=== PATIENT | female | born 1990 | race Caucasian/White ===

== ENCOUNTER 2016-09-11 01:33 | Emergency (ER) | payer SELFPAY ==
[~2016-09-11] VITALS: Ht 152.4 cm; Wt 59.0 kg
[~2016-09-11 01:33] MED LIST: PNV-DHA1 SGL PO; [UNRECOGNIZED DRUG - OTHER] PO
[2016-09-11 01:34] VITALS: BP 108/67
--- NOTE | 2016-09-11 02:30 | NUR ---
AMBULATED TO ER BED 7
--- NOTE | 2016-09-11 02:34 | NUR ---
PT IS A 26/F BIB FAMILY TO ED WITH C/O ABD PAIN x 1 WEEK. PT STATES MED HX OF ASTHMA LAST MONTH WITH INHALER. DENIES N/V/D; SKIN IS PINK/WARM/DRY; AAOX4 WITH EVEN AND STEADY GAIT; LUNGS CLEAR BL; HR EVEN AND REGULAR; PT DENIES ANY FEVER, CP, SOB, OR COUGH AT THIS TIME; PATIENT STATES PAIN OF 8/10 AT THIS TIME; VSS; PATIENT POSITIONED FOR COMFORT; HOB ELEVATED; BEDRAILS UP X2; BED DOWN. ER MD MADE AWARE OF PT STATUS.
--- NOTE | 2016-09-11 04:24 | NUR ---
PT RESTING IN BED. NO S/S OF ACUTE RESP DISTRESS AT THIS TIME. SISTER AT BEDSIDE.
[2016-09-11 04:45] VITALS: BP 110/58
--- NOTE | 2016-09-11 04:45 | NUR ---
Patient discharged with v/s stable. Written and verbal after care instructions given and explained. Patient alert, oriented and verbalized understanding of instructions. Ambulatory with steady gait. All questions addressed prior to discharge. ID band removed. Patient advised to follow up with PMD. NO Rx WERE given. Patient educated on indication of medication including possible reaction and side effects. Opportunity to ask questions provided and answered.
== END 2016-09-11 04:45 | disposition home or self-care (01) ==
LOC: MED 01:33
DX: O26.891 Other specified pregnancy related conditions, first trimester (principal); R10.31 Right lower quadrant pain; R10.32 Left lower quadrant pain; J45.909 Unspecified asthma, uncomplicated; Z90.49 Acquired absence of other specified parts of digestive tract; Z3A.01 Less than 8 weeks gestation of pregnancy
CPT/HCPCS: 36415; 76801; 76817; 80053; 81001; 81025; 83690; 84702; 85025; 86900; 86901; 99285; Q0092

== ENCOUNTER 2018-06-12 00:05 | Emergency (ER) | payer OTHER ==
[~2018-06-12] VITALS: Ht 149.9 cm; Wt 52.2 kg
[2018-06-12 00:16] VITALS: BP 118/69
[2018-06-12] MEDS ORDERED: KETOROLAC 60 MG/2 ML VIAL IM ONE (00:45)
[2018-06-12 01:05] VITALS: BP 112/65
== END 2018-06-12 01:05 | disposition home or self-care (01) ==
LOC: MED 00:05
DX: N39.0 Urinary tract infection, site not specified (principal); J45.909 Unspecified asthma, uncomplicated; Z90.49 Acquired absence of other specified parts of digestive tract
CPT/HCPCS: 81002; 81025; 96372; 99283; J1885

== ENCOUNTER 2018-07-23 19:20 | Emergency (ER) | payer OTHER ==
[~2018-07-23] VITALS: Ht 149.9 cm; Wt 56.7 kg
[2018-07-23 19:36] VITALS: BP 109/61
[2018-07-23] MEDS ORDERED: ACETAMINOPHEN 160 MG/5 ML UDC PO ONE (19:40)
[2018-07-23 22:02] VITALS: BP 107/65
== END 2018-07-23 22:01 | disposition home or self-care (01) ==
LOC: MED 19:20
DX: J06.9 Acute upper respiratory infection, unspecified (principal); J45.909 Unspecified asthma, uncomplicated
CPT/HCPCS: 99283

== ENCOUNTER 2019-04-09 23:47 | Emergency (ER) | payer SELFPAY ==
[~2019-04-09] VITALS: Ht 152.4 cm; Wt 63.5 kg
[2019-04-09 23:50] VITALS: BP 111/61
--- NOTE | 2019-04-09 23:50 | NUR ---
TO BED # 03 AMBULATORY
--- NOTE | 2019-04-10 00:16 | NUR ---
29 Y/O FEMALE PRESENTS TO ED, C/O OF ACHING ABDOMINAL PAIN 03/03. PT STATES PAIN STARTED 2 DAYS AGO AND RADIATED TO LOWER FLANK, DENIES TAKING ANY MEDICATIONS FOR PAIN. PT DENIES ANY CONSTIPATION/DIARRHEA. PT STATES HAVING N/V YESTERDAY. PT DENIES ANY PAIN VOIDING. NO ABNORMAL DISCHARGE OR FOUL SMELL ON URINE. BS ACTIVE X4 QUADRANTS. SOFT, TENDER, PAIN ON PALPATION ON LOWER QUADRANTS. PT VSS. ERMD AWARE. WILL CONTINUE TO MONITOR.
[2019-04-10 00:21] LABS: APPEARANCE,URINE SL CLOUDY (CLEAR); BILIRUBIN,URINE NEGATIVE (NEGATIVE); BLOOD, URINE NEGATIVE (NEGATIVE); COLOR,URINE YELLOW (YELLOW); LEUKOCYTE ESTERASE ,URINE NEGATIVE (NEGATIVE); NITRITE, URINE NEGATIVE (NEGATIVE); UGLUCOSE NEGATIVE (NEGATIVE)
[2019-04-10 00:37] VITALS: BP 121/60
--- NOTE | 2019-04-10 00:37 | NUR ---
PT DISCHARGED WITH PAPERWORK. RX MIRALAX. EDUCATED PT REGARDING MEDICATIONS AND S/E. EDUCATED PT REGARDING D/C DIAGNOSIS AND INSTRUCTIONS. PT VERBALIZED UNDERSTANDING OF TEACHING. TOLD PT TO FOLLOW UP WITH PCP AND WHEN TO RETURN TO ED. PT VSS. ALL QUESTIONS ANSWERED.
== END 2019-04-10 00:37 | disposition home or self-care (01) ==
LOC: MED 23:47
DX: K59.00 Constipation, unspecified (principal); M54.9 Dorsalgia, unspecified; R11.2 Nausea with vomiting, unspecified; J45.909 Unspecified asthma, uncomplicated; Z90.49 Acquired absence of other specified parts of digestive tract
CPT/HCPCS: 74018; 81003; 81025; 99283; Q0092

== ENCOUNTER 2019-04-10 18:07 | Emergency (ER) | payer MEDICAID ==
[~2019-04-10] VITALS: Ht 149.9 cm; Wt 63.5 kg
[2019-04-10 18:11] VITALS: BP 108/67
--- NOTE | 2019-04-10 18:30 | NUR ---
C/O LOWER BACK PAIN X 3 DAYS ---WORSE WITH SUDDEN MOVEMENTS DENIES DYSURIA OR RECENT INJURY--AMBULATORY WITH STEADY GAIT----AWAITS MD HOWE
--- NOTE | 2019-04-10 19:30 | NUR ---
SHAYLA PHIPPS REQUESTED TO DO ANOTHER TEST. PT PROVIDED URINE, TEST DONE HCG NEGATIVE. SHAYLA PHIPPS MADE AWARE.
[2019-04-10 20:19] LABS: BASOPHILS % (AUTO) 0.3 % (0.0-2.0); EOSINOPHILS # (AUTO) 0.3 K/uL (0-0.4); EOSINOPHILS % (AUTO) 3.7 % (0.0-4.0); HEMATOCRIT 35.9 % (36-48); LYMPHOCYTES # (AUTO) 2.4 K/uL (2.5-16.5); LYMPHOCYTES % (AUTO) 26.9 % (20.5-51.1); MEAN CORPUSCULAR HEMOGLOBIN 32 pg (27-31); MEAN CORPUSCULAR HGB CONC 34 g/dL (33-37); MEAN CORPUSCULAR VOLUME 94.4 fL (80-94); MONOCYTES # (AUTO) 0.6 K/uL (0.8-1.0); MONOCYTES % (AUTO) 7.2 % (1.7-9.3); NEUTROPHILS # (AUTO) 5.6 K/uL (1.8-7.7); NEUTROPHILS % (AUTO) 61.9 % (42.2-75.2); PLATELET COUNT (AUTO) 289 K/uL (140-450); RED CELL DISTRIBUTION WIDTH 13.6 % (11.6-13.7)
[2019-04-10 20:34] LABS: ALBUMIN 3.6 g/dL (3.4-5.0); ANION GAP 11.7 (8-16); CARBON DIOXIDE 28.1 mmol/L (21-32); CREATININE 0.6 mg/dL (0.6-1.3); POTASSIUM 3.8 mmol/L (3.5-5.1); TOTAL BILIRUBIN 0.3 mg/dL (0.0-1.0)
[2019-04-10 21:05] VITALS: BP 108/67
--- NOTE | 2019-04-10 21:05 | NUR ---
Patient discharged with v/s stable. Written and verbal after care instructions given and explained. PT ENCOURAGED TO FOLLOW UP WITH OBGYN AND TO DRINK PLENTY OF FLUIDS UNTIL URINE IS CLEAR. Patient alert, oriented and verbalized understanding of instructions. Ambulatory with steady gait. All questions addressed prior to discharge. ID band removed. Patient advised to follow up with PMD. Rx of KEFLEX AND PLUS TABLET WAS given. Patient educated on indication of medication including possible reaction and side effects. Opportunity to ask questions provided and answered.
== END 2019-04-10 21:05 | disposition home or self-care (01) ==
LOC: MED 18:07
DX: O23.41 Unspecified infection of urinary tract in pregnancy, first trimester (principal); O26.891 Other specified pregnancy related conditions, first trimester; J45.909 Unspecified asthma, uncomplicated; Z90.89 Acquired absence of other organs; Z3A.01 Less than 8 weeks gestation of pregnancy
CPT/HCPCS: 36415; 80053; 81002; 81025; 84702; 85025; 99283

== ENCOUNTER 2019-07-06 22:33 | Emergency (ER) | payer SELFPAY ==
[~2019-07-06] VITALS: Ht 149.9 cm; Wt 71.7 kg
[2019-07-06 22:35] VITALS: BP 119/48
--- NOTE | 2019-07-06 22:43 | NUR ---
AMBULATES TO BED 09 WITH STEADY UPRIGHT GAIT. REPORT GIVEN TO ALEXI HICKS.
--- NOTE | 2019-07-06 22:50 | NUR ---
29 Y/O FEMALE PRESENTS TO ED, C/O LEFT LOWER TOOTHACHE 05/03. PT STATES PAIN STARTED THIS MORNING; RADIATES AROUND LEFT SIDE FACIAL REGION. PT C/O DIZZINESS; ABLE TO AMBULATE WITH SLOW STEADY GAIT. 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 PT STATES BEING 14 WEEKS , TAKES SUPPLEMENTS. PT STABLE CONDITION. ERMD AWARE. WILL CONTINUE TO MONITOR.
--- NOTE | 2019-07-06 22:52 | NUR ---
ERMD EVALUATING PT AT BEDSIDE
[2019-07-06] MEDS: AMOXICILLIN 500 MG CAP PO ONE (23:15)
[2019-07-06] MEDS: IBUPROFEN 800 MG TAB PO ONE (23:16)
[2019-07-06 23:30] VITALS: BP 123/55
--- NOTE | 2019-07-06 23:30 | NUR ---
PT DISCHARGED WITH PAPERWORK. RX AMOXICILLIN, MOTRIN. EDUCATED PT REGARDING MEDICATIONS AND S/E. EDUCATED PT REGARDING D/C DIAGNOSIS AND INSTRUCTIONS. PT VERBALIZED UNDERSTANDING OF TEACHING. TOLD PT TO FOLLOW UP WITH PCP AND WHEN TO RETURN TO ED. PT AT STABLE CONDITION. ALL QUESTIONS ANSWERED.
== END 2019-07-06 23:30 | disposition home or self-care (01) ==
LOC: MED 22:33
DX: O99.612 Diseases of the digestive system complicating pregnancy, second trimester (principal); K04.7 Periapical abscess without sinus; J45.909 Unspecified asthma, uncomplicated; Z3A.16 16 weeks gestation of pregnancy
CPT/HCPCS: 99283

== ENCOUNTER 2020-01-19 02:02 | Emergency (ER) | payer SELFPAY ==
[~2020-01-19] VITALS: Ht 149.9 cm; Wt 59.0 kg
[2020-01-19 02:12] VITALS: BP 129/69
[2020-01-19] MEDS ORDERED: HYDROcodone/APAP 10/325 MG 1 TAB TAB PO PRN (03:10)
[2020-01-19] MEDS ORDERED: IBUPROFEN 600 MG TAB PO ONE (03:10)
[2020-01-19] MEDS ORDERED: CLINDAMYCIN 150 MG CAP PO ONE (03:10)
--- NOTE | 2020-01-19 03:16 | NUR ---
Patient ambulated to bed 12. RN evaluating patient at bedside.
--- NOTE | 2020-01-19 03:20 | NUR ---
30 YO F BIB SELF FOR C/C OF 10/10 L BOTTOM SIDE TOOTHACHE. PT STATES THIS BEGAN YESTERDAY MORNING AND HAS BEEN UNRELIEVED BY TYLENOL AND ORAJEL AT HOME. PT STATES SHE HAS BEEN UNABLE TO SEE DENTIST BUT WILL GET AN APPOINTMENT OZZIE. NKA NO MED HX NO RX
--- NOTE | 2020-01-19 03:35 | NUR ---
Dr. Ruiz is evaluating the patient at bedside.
[2020-01-19 03:40] VITALS: BP 129/69
--- NOTE | 2020-01-19 03:40 | NUR ---
Patient discharged with v/s stable. Written and verbal after care instructions given and explained. Patient alert, oriented and verbalized understanding of instructions. Ambulatory with steady gait. All questions addressed prior to discharge. ID band removed. Patient advised to follow up with PMD. Rx of NORCO, CLINDAMYCIN, MOTRIN given. Patient educated on indication of medication including possible reaction and side effects. Opportunity to ask questions provided and answered.
== END 2020-01-19 03:40 | disposition home or self-care (01) ==
LOC: MED 02:02
DX: K04.7 Periapical abscess without sinus (principal); J45.909 Unspecified asthma, uncomplicated
CPT/HCPCS: 99284

== ENCOUNTER 2020-07-09 21:09 | Emergency (ER) | payer MEDICAID ==
[~2020-07-09] VITALS: Ht 154.9 cm; Wt 59.0 kg
[2020-07-09 22:00] VITALS: BP 132/76
--- NOTE | 2020-07-09 22:00 | NUR ---
TO TENT # 07 AMBULATORY
--- NOTE | 2020-07-09 22:31 | NUR ---
SEEN AND EXAMINED BY SALOMÓN WITH ORDERS, CARRIED OUT
--- NOTE | 2020-07-09 22:40 | NUR ---
SWAB DONE AND SENT TO LAB
[2020-07-09 23:20] VITALS: BP 119/79
== END 2020-07-09 23:20 | disposition home or self-care (01) ==
LOC: MED 21:09
DX: R05 Cough (principal); Z20.828 Contact with and (suspected) exposure to other viral communicable diseases; M79.10 Myalgia, unspecified site; R50.9 Fever, unspecified
CPT/HCPCS: 99283; U0003

== ENCOUNTER 2020-12-11 20:42 | Emergency (ER) | payer MEDICAID ==
[~2020-12-11] VITALS: Ht 149.9 cm; Wt 68.0 kg
[2020-12-11 20:47] VITALS: BP 111/59
--- NOTE | 2020-12-11 20:47 | NUR ---
TO BED AMBULATORY
--- NOTE | 2020-12-11 20:57 | NUR ---
30 y.o female has vaginal bleeding started 5-6 hours ago along with back pain. Pain feels like a 6-7/10 pain that feels achey. pt states being 13weeks . A2 PMH: n/a Allergies: NKA
[2020-12-11] MEDS ORDERED: DOPPLER MC ONE (21:16)
--- NOTE | 2020-12-11 21:20 | NUR ---
heart tones done at bedside with Be TRUONG
--- NOTE | 2020-12-11 21:37 | NUR ---
ERMD at bedside for examination
[2020-12-11 22:15] VITALS: BP 97/53
--- NOTE | 2020-12-11 22:15 | NUR ---
Patient discharged with v/s stable. Written and verbal after care instructions given and explained. Patient verbalized understanding. Ambulatory with steady gait. ID band removed. All questions addressed prior to discharge. Advised to follow up with PMD.
== END 2020-12-11 22:15 | disposition home or self-care (01) ==
LOC: MED 20:42
DX: O20.8 Other hemorrhage in early pregnancy (principal); O26.891 Other specified pregnancy related conditions, first trimester; R10.30 Lower abdominal pain, unspecified; M54.9 Dorsalgia, unspecified; Z3A.13 13 weeks gestation of pregnancy; J45.909 Unspecified asthma, uncomplicated; Z90.49 Acquired absence of other specified parts of digestive tract; Z98.890 Other specified postprocedural states
CPT/HCPCS: 81002; 81025; 99284

== ENCOUNTER 2021-01-15 01:42 | Emergency (ER) | payer MEDICAID ==
[~2021-01-15] VITALS: Ht 149.9 cm; Wt 72.6 kg
--- NOTE | 2021-01-15 01:50 | NUR ---
To ED bed 11
[2021-01-15 01:51] VITALS: BP 109/61
[2021-01-15] MEDS ORDERED: NACL 0.9% 1,000 ML IV ONE (02:05)
[2021-01-15] MEDS ORDERED: cephALEXin 500 MG CAP PO ONE (02:05)
[2021-01-15] MEDS ORDERED: ACETAMINOPHEN EXTRA STRENGTH 500 MG TAB PO ONE (02:05)
[2021-01-15] MEDS ORDERED: cephALEXin 500 MG CAP ONE (02:06)
[2021-01-15] MEDS ORDERED: ACETAMINOPHEN EXTRA STRENGTH 500 MG TAB ONE (02:06)
[2021-01-15 02:17] LABS: BASOPHILS % (AUTO) 0.3 % (0.0-2.0); EOSINOPHILS # (AUTO) 0.2 K/uL (0-0.4); EOSINOPHILS % (AUTO) 1.3 % (0.0-4.0); HEMATOCRIT 33.4 % (36-48); HEMOGLOBIN 11.3 g/dL (12.0-16.0); LYMPHOCYTES # (AUTO) 2.5 K/uL (2.5-16.5); LYMPHOCYTES % (AUTO) 18.8 % (20.5-51.1); MEAN CORPUSCULAR HEMOGLOBIN 33 pg (27-31); MEAN CORPUSCULAR HGB CONC 34 g/dL (33-37); MEAN CORPUSCULAR VOLUME 98.3 fL (80-94); MONOCYTES # (AUTO) 0.9 K/uL (0.8-1.0); NEUTROPHILS # (AUTO) 9.6 K/uL (1.8-7.7); NEUTROPHILS % (AUTO) 72.6 % (42.2-75.2); PLATELET COUNT (AUTO) 265 K/uL (140-450); WHITE BLOOD COUNT (AUTO) 13.2 K/uL (4.8-10.8)
[2021-01-15 02:26] LABS: ANION GAP 23.2 (8-16); CARBON DIOXIDE 23.7 mmol/L (21-32); CREATININE 0.6 mg/dL (0.6-1.3); POTASSIUM 3.9 mmol/L (3.5-5.1)
[2021-01-15 02:32] LABS: ALBUMIN 2.8 g/dL (3.4-5.0); TOTAL BILIRUBIN 0.1 mg/dL (0.0-1.0)
--- NOTE | 2021-01-15 02:50 | NUR ---
US AT BEDSIDE. AT BEDSIDE.
--- NOTE | 2021-01-15 03:17 | NUR ---
pt ambulated to restroom with steady gait.
[2021-01-15 06:05] VITALS: BP 98/69
[2021-01-15] MEDS ORDERED: CEPH500C16 PO (06:10)
--- NOTE | 2021-01-15 06:24 | NUR ---
pt d/c with VSS. d/c education given. opportunity to ask questions given and answered. no rx given at this time.
== END 2021-01-15 06:24 | disposition home or self-care (01) ==
LOC: MED 01:42
DX: O23.41 Unspecified infection of urinary tract in pregnancy, first trimester (principal); J45.909 Unspecified asthma, uncomplicated; Z3A.18 18 weeks gestation of pregnancy
CPT/HCPCS: 36415; 76805; 80053; 81002; 81025; 85025; 96360; 99284; J7030

== ENCOUNTER 2021-02-23 23:32 | Emergency (ER) | payer MEDICAID ==
[~2021-02-23] VITALS: Ht 149.9 cm; Wt 72.6 kg
[~2021-02-23 23:32] MED LIST changes: +CEPH500C16 PO; -PNV-DHA1 SGL PO; -[UNRECOGNIZED DRUG - OTHER] PO
[2021-02-23 23:44] VITALS: BP 116/68
--- NOTE | 2021-02-23 23:47 | NUR ---
TO LOBBY A/W BED AMBULATORY
--- NOTE | 2021-02-23 23:55 | NUR ---
CALLED PT IN LOBBY AND OUTSIDE WITH NO ANSWER.
--- NOTE | 2021-02-24 | NUR ---
CALLED PT IN LOBBY AND OUTSIDE WITH NO ANSWER.
--- NOTE | 2021-02-24 00:05 | NUR ---
CALLED PT IN LOBBY AND OUTSIDE WITH NO ANSWER.
== END 2021-02-23 23:55 | disposition left against medical advice (07) ==
LOC: MED 23:32
DX: O26.892 Other specified pregnancy related conditions, second trimester (principal); R51.9 Headache, unspecified; M79.10 Myalgia, unspecified site; Z53.21 Procedure and treatment not carried out due to patient leaving prior to being seen by health care provider

== ENCOUNTER 2021-07-24 14:15 | Emergency (ER) | payer MEDICAID, OTHER ==
[~2021-07-24] VITALS: Ht 149.9 cm; Wt 88.9 kg
[2021-07-24 15:45] VITALS: BP 149/93
--- NOTE | 2021-07-24 15:57 | NUR ---
Pt to wait in lobby
[2021-07-24] MEDS ORDERED: LORazepam 1 MG TAB PO ONE (17:55)
[2021-07-24 18:49] LABS: BASOPHILS % (AUTO) 0.5 % (0.0-2.0); EOSINOPHILS # (AUTO) 0.2 K/uL (0-0.4); EOSINOPHILS % (AUTO) 2.4 % (0.0-4.0); HEMATOCRIT 41.7 % (36-48); LYMPHOCYTES # (AUTO) 1.8 K/uL (2.5-16.5); LYMPHOCYTES % (AUTO) 24.2 % (20.5-51.1); MEAN CORPUSCULAR HEMOGLOBIN 32 pg (27-31); MEAN CORPUSCULAR HGB CONC 34 g/dL (33-37); MEAN CORPUSCULAR VOLUME 93.5 fL (80-94); MONOCYTES # (AUTO) 0.5 K/uL (0.8-1.0); MONOCYTES % (AUTO) 6.2 % (1.7-9.3); NEUTROPHILS # (AUTO) 5.1 K/uL (1.8-7.7); NEUTROPHILS % (AUTO) 66.7 % (42.2-75.2); PLATELET COUNT (AUTO) 322 K/uL (140-450); RED BLOOD CELL COUNT(AUTO) 4.46 MIL/uL (4.20-5.40); RED CELL DISTRIBUTION WIDTH 12.6 % (11.6-13.7); WHITE BLOOD COUNT (AUTO) 7.6 K/uL (4.8-10.8)
[2021-07-24] MEDS ORDERED: ATA25 PO (18:51)
[2021-07-24 18:54] LABS: ANION GAP 10.7 (8-16); CARBON DIOXIDE 28.2 mmol/L (21-32); CREATININE 0.6 mg/dL (0.6-1.3); POTASSIUM 3.9 mmol/L (3.5-5.1)
[2021-07-24] MEDS ORDERED: LORazepam 1 MG TAB ONE (19:34)
[2021-07-24 19:45] VITALS: BP 149/93
--- NOTE | 2021-07-25 00:19 | NUR ---
Patient discharged with v/s stable. Written and verbal after care instructions given and explained. Patient verbalized understanding. Ambulatory with steady gait. All questions addressed prior to discharge. Advised to follow up with PMD.
== END 2021-07-24 19:45 | disposition home or self-care (01) ==
LOC: MED 14:15
DX: F41.9 Anxiety disorder, unspecified (principal); R07.89 Other chest pain; J45.909 Unspecified asthma, uncomplicated; Z79.899 Other long term (current) drug therapy
CPT/HCPCS: 36415; 71045; 80048; 84484; 85025; 93005; 99285

== ENCOUNTER 2021-10-29 11:50 | Emergency (ER) | payer OTHER ==
[~2021-10-29] VITALS: Ht 149.9 cm; Wt 68.5 kg
[~2021-10-29 11:50] MED LIST changes: +ATA25 PO
[2021-10-29 12:04] VITALS: BP 129/73
--- NOTE | 2021-10-29 12:08 | NUR ---
PT SENT TO LOBBY
--- NOTE | 2021-10-29 14:48 | NUR ---
ATTEMPTED TO COMPLETE ACCUCHECK, NO ANSWER IN LOBBY/OUTSIDE. SHAYLA CRAIN MADE AWARE
--- NOTE | 2021-10-29 15:06 | NUR ---
SHALYA CRAIN CALLED PT TO HAVE HER COME BACK, PT REPORTS SHE IS COMING BACK.
--- NOTE | 2021-10-29 17:27 | NUR ---
PT NEVER RETURNED TO ER AFTER PA CRAIN CALLED PT. PATIENT ELOPED FROM FACILITY. DISCHARGE INSTRUCTIONS NOT GIVEN TO PATIENT. PA CRAIN NOTIFIED. PT WILL NEED TO CHECK BACK IN IF SHE RETURNS.
== END 2021-10-29 17:27 | disposition left against medical advice (07) ==
LOC: MED 11:50
DX: R42 Dizziness and giddiness (principal); R11.0 Nausea; J45.909 Unspecified asthma, uncomplicated; Z79.899 Other long term (current) drug therapy
CPT/HCPCS: 81002; 81025; 93005; 99283

== ENCOUNTER 2021-11-09 14:11 | Emergency (ER) | payer OTHER ==
[~2021-11-09] VITALS: Ht 149.9 cm; Wt 66.7 kg
[2021-11-09 14:41] VITALS: BP 106/55
--- NOTE | 2021-11-09 14:45 | NUR ---
PT C/O VAGINAL BLEEDING SINCE LAST NIGHT, BRIGHT RED BLOOD WITH CLOTS AND ABDOMINAL CRAMPING, APPROX 5 WEEKS .
[2021-11-09 15:48] LABS: BILIRUBIN,URINE NEGATIVE (NEGATIVE); BLOOD, URINE 3+ (NEGATIVE); LEUKOCYTE ESTERASE ,URINE TRACE (NEGATIVE); NITRITE, URINE NEGATIVE (NEGATIVE); PH,URINE 5.5 (5.0-9.0); UGLUCOSE NEGATIVE (NEGATIVE)
[2021-11-09 15:49] LABS: APPEARANCE,URINE HAZY (CLEAR); COLOR,URINE RED (YELLOW)
[2021-11-09] MEDS ORDERED: CEPH-588 PO (17:29)
[2021-11-09 17:52] VITALS: BP 107/65
[2021-11-09 21:12] LABS: RBC,URINE TOO NUMEROUS TO COUN /HPF (0-5)
[2021-11-09 21:13] LABS: WBC,URINE 0-5 /HPF (0-5)
== END 2021-11-09 17:52 | disposition home or self-care (01) ==
LOC: MED 14:11
DX: O20.0 Threatened abortion (principal); O98.911 Unspecified maternal infectious and parasitic disease complicating pregnancy, first trimester; R82.71 Bacteriuria; J45.909 Unspecified asthma, uncomplicated; Z79.899 Other long term (current) drug therapy
CPT/HCPCS: 36415; 76801; 81001; 81025; 84702; 86886; 86900; 86901; 99284; Q0092

== ENCOUNTER 2021-11-13 18:13 | Emergency (ER) | payer OTHER ==
[~2021-11-13] VITALS: Ht 149.9 cm; Wt 64.9 kg
[~2021-11-13 18:13] MED LIST changes: +CEPH-588 PO
[2021-11-13 18:27] VITALS: BP 106/69
--- NOTE | 2021-11-13 18:40 | NUR ---
PT AMBULATED TO BED #3
[2021-11-13 18:54] LABS: BASOPHILS % (AUTO) 0.6 % (0.0-2.0); EOSINOPHILS # (AUTO) 0.1 K/uL (0-0.4); EOSINOPHILS % (AUTO) 1.9 % (0.0-4.0); HEMATOCRIT 38.8 % (36-48); HEMOGLOBIN 13.1 g/dL (12.0-16.0); MEAN CORPUSCULAR HEMOGLOBIN 32 pg (27-31); MEAN CORPUSCULAR HGB CONC 34 g/dL (33-37); MONOCYTES # (AUTO) 0.5 K/uL (0.8-1.0); MONOCYTES % (AUTO) 7.1 % (1.7-9.3); NEUTROPHILS # (AUTO) 3.8 K/uL (1.8-7.7); NEUTROPHILS % (AUTO) 59.4 % (42.2-75.2); PLATELET COUNT (AUTO) 277 K/uL (140-450); RED BLOOD CELL COUNT(AUTO) 4.13 MIL/uL (4.20-5.40); RED CELL DISTRIBUTION WIDTH 13.6 % (11.6-13.7); WHITE BLOOD COUNT (AUTO) 6.4 K/uL (4.8-10.8)
[2021-11-13 19:20] LABS: ALBUMIN 3.8 g/dL (3.4-5.0); ANION GAP 14.6 (8-16); CARBON DIOXIDE 24.4 mmol/L (21-32); CREATININE 0.7 mg/dL (0.6-1.3); TOTAL BILIRUBIN 0.5 mg/dL (0.0-1.0)
--- NOTE | 2021-11-13 19:30 | NUR ---
pt urine collected tested for preg
[2021-11-13] MEDS ORDERED: POTASSIUM CHLORIDE 10 MEQ TABER PO ONE (19:35)
[2021-11-13] MEDS ORDERED: ACET-10509 PO (19:40)
[2021-11-13 20:10] VITALS: BP 106/69
--- NOTE | 2021-11-13 20:10 | NUR ---
Patient discharged with v/s stable. Written and verbal after care instructions given and explained. Patient alert, oriented and verbalized understanding of instructions. Ambulatory with steady gait. All questions addressed prior to discharge. ID band removed. Patient advised to follow up with PMD. Rx of tylenol given. Opportunity to ask questions provided and answered.
--- NOTE | 2021-11-13 20:30 | NUR ---
The patient's care was reviewed and supervised by Nita Bagley RN.
== END 2021-11-13 20:10 | disposition home or self-care (01) ==
LOC: MED 18:13
DX: O03.9 Complete or unspecified spontaneous abortion without complication (principal); J45.909 Unspecified asthma, uncomplicated; Z79.899 Other long term (current) drug therapy; Z90.49 Acquired absence of other specified parts of digestive tract; Z98.890 Other specified postprocedural states
CPT/HCPCS: 36415; 80053; 81002; 81025; 84702; 85025; 99283

== ENCOUNTER 2021-12-16 15:42 | Emergency (ER) | payer OTHER ==
[~2021-12-16] VITALS: Ht 149.9 cm; Wt 59.0 kg
[~2021-12-16 15:42] MED LIST changes: +ACET-10509 PO
[2021-12-16 16:04] VITALS: BP 135/91
--- NOTE | 2021-12-16 16:10 | NUR ---
PT AMB TO BED 8.
--- NOTE | 2021-12-16 16:30 | NUR ---
NO NURSING INTERVENTIONS PERFORMED. Patient discharged with v/s stable. Written and verbal after care instructions giveN. Patient verbalized understanding. Ambulatory with steady gait. All questions addressed prior to discharge. Advised to follow up with PMD.
--- NOTE | 2021-12-16 16:31 | NUR ---
Chart checked and completed. The patient's care was reviewed and supervised by Erendira Pena RN.
== END 2021-12-16 16:30 | disposition home or self-care (01) ==
LOC: MED 15:42
DX: R11.10 Vomiting, unspecified (principal); J45.909 Unspecified asthma, uncomplicated; Z90.49 Acquired absence of other specified parts of digestive tract; Z98.890 Other specified postprocedural states; Z79.899 Other long term (current) drug therapy; Z79.2 Long term (current) use of antibiotics
CPT/HCPCS: 99281

== ENCOUNTER 2022-01-23 20:04 | Emergency (ER) | payer OTHER ==
[~2022-01-23] VITALS: Ht 149.9 cm; Wt 64.2 kg
[2022-01-23 20:13] VITALS: BP 117/73
--- NOTE | 2022-01-23 20:16 | NUR ---
PT TO BED 2.
--- NOTE | 2022-01-23 20:35 | NUR ---
32 Y.O. F BIB SELF C/O 03/03 PELVIC PAIN RAD TO ABD X1WK. PT STTED TO ME THAT SHE FEEL LIKE IT IS MORE OF A DISCOMFORT THAN A PAIN. REPORTS H/A. STATES INCREASED URINARY URGENCY AND FREQUENCY. IS TAKING TYLENOL WITH LITTLE RELIEF. HAD SOME N/V TODAY. NO D, CHEST PAIN, AND SOB. A&OX4, VITALS WNL FOR PT, STEADY GAIT, SKIN INTACT AND NO PIAN WHEN URINATING. DENIES HX, RX AND ALLERGIES
[2022-01-23 20:57] LABS: BASOPHILS # (AUTO) 0.1 K/uL (0.00-0.22); BASOPHILS % (AUTO) 0.6 % (0.0-2.0); EOSINOPHILS # (AUTO) 0.1 K/uL (0-0.4); EOSINOPHILS % (AUTO) 1.3 % (0.0-4.0); HEMATOCRIT 32.3 % (36-48); HEMOGLOBIN 10.8 g/dL (12.0-16.0); LYMPHOCYTES # (AUTO) 2.1 K/uL (2.5-16.5); LYMPHOCYTES % (AUTO) 23.1 % (20.5-51.1); MEAN CORPUSCULAR HEMOGLOBIN 33 pg (27-31); MEAN CORPUSCULAR HGB CONC 34 g/dL (33-37); MEAN CORPUSCULAR VOLUME 98.4 fL (80-94); MONOCYTES # (AUTO) 0.7 K/uL (0.8-1.0); MONOCYTES % (AUTO) 7.7 % (1.7-9.3); NEUTROPHILS # (AUTO) 6.1 K/uL (1.8-7.7); NEUTROPHILS % (AUTO) 67.3 % (42.2-75.2); PLATELET COUNT (AUTO) 267 K/uL (140-450); RED BLOOD CELL COUNT(AUTO) 3.28 MIL/uL (4.20-5.40); RED CELL DISTRIBUTION WIDTH 14.6 % (11.6-13.7); WHITE BLOOD COUNT (AUTO) 9.1 K/uL (4.8-10.8)
[2022-01-23 21:01] LABS: APPEARANCE,URINE CLEAR (CLEAR); BILIRUBIN,URINE NEGATIVE (NEGATIVE); BLOOD, URINE NEGATIVE (NEGATIVE); COLOR,URINE YELLOW (YELLOW); LEUKOCYTE ESTERASE ,URINE TRACE (NEGATIVE); NITRITE, URINE NEGATIVE (NEGATIVE); UGLUCOSE NEGATIVE (NEGATIVE)
[2022-01-23 21:03] LABS: RBC,URINE NONE SEEN /HPF (0-5)
[2022-01-23] MEDS ORDERED: DOXY1TCP PO (21:26)
[2022-01-23] MEDS ORDERED: NITR100C7 PO (21:26)
[2022-01-23 21:39] VITALS: BP 117/73
--- NOTE | 2022-01-23 21:40 | NUR ---
Patient discharged with v/s stable. Written and verbal after care instructions given and explained. Patient alert, oriented and verbalized understanding of instructions. Ambulatory with steady gait. All questions addressed prior to discharge. ID band removed. Patient advised to follow up with PMD. Rx of SKIPS DR 10-10 MG TABLET AND MACROBID 100MG CAPSULE given. Patient educated on indication of medication including possible reaction and side effects. Opportunity to ask questions provided and answered.
== END 2022-01-23 21:38 | disposition home or self-care (01) ==
LOC: MED 20:04
DX: O23.41 Unspecified infection of urinary tract in pregnancy, first trimester (principal); O26.891 Other specified pregnancy related conditions, first trimester; R11.0 Nausea; O99.511 Diseases of the respiratory system complicating pregnancy, first trimester; J45.909 Unspecified asthma, uncomplicated; Z3A.01 Less than 8 weeks gestation of pregnancy; Z90.49 Acquired absence of other specified parts of digestive tract; Z79.899 Other long term (current) drug therapy; Z79.2 Long term (current) use of antibiotics
CPT/HCPCS: 36415; 76817; 81001; 81025; 84702; 85025; 86900; 86901; 87086; 99284; Q0092

== ENCOUNTER 2022-03-10 18:26 | Emergency (ER) | payer OTHER ==
[~2022-03-10] VITALS: Ht 149.9 cm; Wt 61.2 kg
[~2022-03-10 18:26] MED LIST changes: +DOXY1TCP PO; +NITR100C7 PO
[2022-03-10 18:51] VITALS: BP 117/69
--- NOTE | 2022-03-10 19:01 | NUR ---
PATIENT AMBULATED TO BED 2.
--- NOTE | 2022-03-10 19:17 | NUR ---
Pt report given to RAGHAV VUONG. Transfer of care at this time.
--- NOTE | 2022-03-10 19:25 | NUR ---
32 Y/O F BIB SELF C/O LOWER ABD PAIN8/10, N/V/D, CHILLS, QIU X TODAY. 14 WEEKS . PMH: SINTIA REYES
--- NOTE | 2022-03-10 19:25 | NUR ---
DR KYLE AT BEDSIDE.
[2022-03-10] MEDS ORDERED: ACETAMINOPHEN EXTRA STRENGTH 500 MG TAB PO ONE (19:40)
[2022-03-10 19:56] LABS: BASOPHILS % (AUTO) 0.2 % (0.0-2.0); EOSINOPHILS % (AUTO) 0.5 % (0.0-4.0); HEMATOCRIT 35.2 % (36-48); LYMPHOCYTES # (AUTO) 0.7 K/uL (2.5-16.5); LYMPHOCYTES % (AUTO) 10.3 % (20.5-51.1); MEAN CORPUSCULAR HEMOGLOBIN 34 pg (27-31); MEAN CORPUSCULAR HGB CONC 34 g/dL (33-37); MEAN CORPUSCULAR VOLUME 98.7 fL (80-94); MONOCYTES # (AUTO) 0.3 K/uL (0.8-1.0); MONOCYTES % (AUTO) 5.1 % (1.7-9.3); NEUTROPHILS # (AUTO) 5.6 K/uL (1.8-7.7); NEUTROPHILS % (AUTO) 83.9 % (42.2-75.2); PLATELET COUNT (AUTO) 252 K/uL (140-450); RED BLOOD CELL COUNT(AUTO) 3.57 MIL/uL (4.20-5.40); RED CELL DISTRIBUTION WIDTH 13.5 % (11.6-13.7); WHITE BLOOD COUNT (AUTO) 6.7 K/uL (4.8-10.8)
[2022-03-10 20:10] LABS: ANION GAP 9.9 (8-16); CARBON DIOXIDE 24.6 mmol/L (21-32); CREATININE 0.5 mg/dL (0.6-1.3); POTASSIUM 3.5 mmol/L (3.5-5.1); TOTAL BILIRUBIN 0.6 mg/dL (0.0-1.0)
[2022-03-10] MEDS ORDERED: METO-485 PO (20:41)
[2022-03-10] MEDS ORDERED: CEPH-588 PO (20:41)
[2022-03-10] MEDS ORDERED: DOXY1TCP PO (20:41)
--- NOTE | 2022-03-10 21:12 | NUR ---
ULATRASOUND AT BEDSIDE.
[2022-03-10] MEDS ORDERED: ONDANSETRON 4 MG ODT PO ONE (21:35)
[2022-03-10 22:40] VITALS: BP 103/60
== END 2022-03-10 22:40 | disposition home or self-care (01) ==
LOC: MED 18:26
DX: O99.611 Diseases of the digestive system complicating pregnancy, first trimester (principal); O21.8 Other vomiting complicating pregnancy; K52.9 Noninfective gastroenteritis and colitis, unspecified; Z3A.14 14 weeks gestation of pregnancy
CPT/HCPCS: 36415; 76801; 80053; 81002; 81025; 84702; 85025; 87086; 99285; Q0092; Q0162

== ENCOUNTER 2022-04-12 12:12 | Emergency (ER) | payer OTHER ==
[~2022-04-12] VITALS: Ht 149.9 cm; Wt 63.5 kg
[2022-04-12 12:26] VITALS: BP 137/96
--- NOTE | 2022-04-12 12:26 | NUR ---
32 y/o female, c/o headache, lightheaded, tingling sensation in her head for 3 days. denies blurry vision, n/v/d, cough, sob, cp, or sore throat. pmh: anxiety nka med: denies
[2022-04-12] MEDS ORDERED: IBUP-2213 PO (14:32)
[2022-04-12] MEDS ORDERED: IBUPROFEN 600 MG TAB PO SCH (14:35)
[2022-04-12 15:27] VITALS: BP 137/96
--- NOTE | 2022-04-12 15:27 | NUR ---
Patient discharged with v/s stable. Written and verbal after care instructions given and explained. Patient alert, oriented and verbalized understanding of instructions. Ambulatory with steady gait. All questions addressed prior to discharge. ID band removed. Patient advised to follow up with PMD. Rx of ibuprofen (sent) given. Patient educated on indication of medication including possible reaction and side effects. Opportunity to ask questions provided and answered.
== END 2022-04-12 15:27 | disposition home or self-care (01) ==
LOC: MED 12:12
DX: R51.9 Headache, unspecified (principal); R03.0 Elevated blood-pressure reading, without diagnosis of hypertension; F41.9 Anxiety disorder, unspecified; J45.909 Unspecified asthma, uncomplicated; Z79.899 Other long term (current) drug therapy
CPT/HCPCS: 99282

== ENCOUNTER 2022-04-26 00:02 | Emergency (ER) | payer OTHER ==
[~2022-04-26] VITALS: Ht 149.9 cm; Wt 63.5 kg
[~2022-04-26 00:02] MED LIST changes: +IBUP-2213 PO
[2022-04-26 00:10] VITALS: BP 119/77
--- NOTE | 2022-04-26 00:13 | NUR ---
to lobby a/w bed ambulatory
--- NOTE | 2022-04-26 01:36 | NUR ---
Dr. Anderson examining patient.
[2022-04-26] MEDS ORDERED: PENI500T20 PO (02:14)
[2022-04-26 02:20] VITALS: BP 119/77
--- NOTE | 2022-04-26 02:20 | NUR ---
Patient discharged with v/s stable. Written and verbal after care instructions given and explained BY CHAZ BESS Patient alert, oriented and verbalized understanding of instructions. Ambulatory with steady gait. All questions addressed prior to discharge. ID band removed. Patient advised to follow up with PMD. Rx of PENICILLIN V K given. Patient educated on indication of medication including possible reaction and side effects. Opportunity to ask questions provided and answered.
== END 2022-04-26 02:20 | disposition home or self-care (01) ==
LOC: MED 00:02
DX: S61.411A Laceration without foreign body of right hand, initial encounter (principal); J45.909 Unspecified asthma, uncomplicated; W26.0XXA Contact with knife, initial encounter; Y93.89 Activity, other specified; Y92.89 Other specified places as the place of occurrence of the external cause; Y99.8 Other external cause status
CPT/HCPCS: 90471; 90715; 99283

== ENCOUNTER 2022-12-02 02:45 | Emergency (ER) | payer OTHER ==
[~2022-12-02] VITALS: Ht 149.9 cm; Wt 61.7 kg
[~2022-12-02 02:45] MED LIST changes: +PENI500T20 PO
[2022-12-02 03:00] VITALS: BP 130/87
--- NOTE | 2022-12-02 03:03 | NUR ---
TO LOBBY A/W BED AMBULATORY
--- NOTE | 2022-12-02 04:22 | NUR ---
Patient returned back from CT scan.
--- NOTE | 2022-12-02 05:10 | NUR ---
pt to chc
--- NOTE | 2022-12-02 05:12 | NUR ---
Dr. Smith examining patient.
[2022-12-02] MEDS ORDERED: ACET-10509 PO (05:18)
[2022-12-02 05:23] VITALS: BP 128/87
== END 2022-12-02 05:23 | disposition home or self-care (01) ==
LOC: MED 02:45
DX: S00.83XA Contusion of other part of head, initial encounter (principal); J45.909 Unspecified asthma, uncomplicated; Z79.899 Other long term (current) drug therapy; Z79.2 Long term (current) use of antibiotics; Z79.1 Long term (current) use of non-steroidal anti-inflammatories (NSAID); W01.198A Fall on same level from slipping, tripping and stumbling with subsequent striking against other object, initial encounter; Y92.89 Other specified places as the place of occurrence of the external cause; Y93.89 Activity, other specified; Y99.8 Other external cause status
CPT/HCPCS: 70450; 99284

== ENCOUNTER 2023-01-09 01:03 | Emergency (ER) | payer OTHER ==
[~2023-01-09] VITALS: Ht 152.4 cm; Wt 59.0 kg
[2023-01-09 01:06] VITALS: BP 106/73
--- NOTE | 2023-01-09 02:07 | NUR ---
PT AMBULATED TO BED 06.
--- NOTE | 2023-01-09 02:10 | NUR ---
RECEIVED IN BED 6 WITH C/O FEVER SINCE YESTERDAY.
[2023-01-09] MEDS ORDERED: KETOROLAC 30 MG/ML VIAL IM ONE (03:35)
[2023-01-09] MEDS ORDERED: NAPR-54 PO (04:05)
[2023-01-09] MEDS ORDERED: AZIT250T4 PO (04:05)
[2023-01-09 04:10] VITALS: BP 106/73
--- NOTE | 2023-01-09 04:10 | NUR ---
Patient discharged with v/s stable. Written and verbal after care instructions given and explained. Patient alert, oriented and verbalized understanding of instructions. Ambulatory with steady gait. All questions addressed prior to discharge. ID band removed. Patient advised to follow up with PMD. Rx of Z PACK, NAPROSYN given. Patient educated on indication of medication including possible reaction and side effects. Opportunity to ask questions provided and answered.
[2023-01-09] MEDS ORDERED: BEN10 PO (15:49)
== END 2023-01-09 04:10 | disposition home or self-care (01) ==
LOC: MED 01:03
DX: J02.9 Acute pharyngitis, unspecified (principal); R50.9 Fever, unspecified; J45.909 Unspecified asthma, uncomplicated; Z79.899 Other long term (current) drug therapy
CPT/HCPCS: 87081; 96372; 99283

== ENCOUNTER 2023-01-09 13:19 | Emergency (ER) | payer OTHER ==
[~2023-01-09] VITALS: Ht 149.9 cm; Wt 63.5 kg
[~2023-01-09 13:19] MED LIST changes: +AZIT250T4 PO; +NAPR-54 PO
[2023-01-09 13:23] VITALS: BP 124/77
[2023-01-09] MEDS ORDERED: NACL 0.9% 1,000 ML IV ONE (13:55)
[2023-01-09] MEDS ORDERED: ONDANSETRON 4 MG/2 ML VIAL IVP ONE (13:55)
[2023-01-09] MEDS ORDERED: MORPHINE SULFATE 4 MG/ML SYR IVP ONE (13:55)
[2023-01-09 14:20] LABS: BASOPHILS % (AUTO) 0.4 % (0.0-2.0); EOSINOPHILS # (AUTO) 0.1 K/uL (0-0.4); EOSINOPHILS % (AUTO) 1.8 % (0.0-4.0); HEMATOCRIT 35.1 % (36-48); LYMPHOCYTES # (AUTO) 2.4 K/uL (2.5-16.5); LYMPHOCYTES % (AUTO) 28.6 % (20.5-51.1); MEAN CORPUSCULAR HEMOGLOBIN 33 pg (27-31); MEAN CORPUSCULAR HGB CONC 34 g/dL (33-37); MEAN CORPUSCULAR VOLUME 96.3 fL (80-94); MONOCYTES # (AUTO) 0.7 K/uL (0.8-1.0); MONOCYTES % (AUTO) 8.1 % (1.7-9.3); NEUTROPHILS % (AUTO) 61.1 % (42.2-75.2); PLATELET COUNT (AUTO) 245 K/uL (140-450); RED BLOOD CELL COUNT(AUTO) 3.64 MIL/uL (4.20-5.40); RED CELL DISTRIBUTION WIDTH 12.6 % (11.6-13.7); WHITE BLOOD COUNT (AUTO) 8.2 K/uL (4.8-10.8)
[2023-01-09 14:34] LABS: ALBUMIN 3.6 g/dL (3.4-5.0); ANION GAP 9.8 (8-16); CARBON DIOXIDE 31.3 mmol/L (21-32); CREATININE 0.6 mg/dL (0.6-1.3); POTASSIUM 3.1 mmol/L (3.5-5.1); TOTAL BILIRUBIN 0.2 mg/dL (0.0-1.0)
[2023-01-09] MEDS ORDERED: POTASSIUM CHLORIDE 10 MEQ TABER PO ONE (14:45)
[2023-01-09] MEDS ORDERED: KETOROLAC 15 MG/ML VIAL IVP ONE (14:45)
[2023-01-09] MEDS ORDERED: KCL 20 MEQ IN 100 mL PREMIX 100 ML IV ONE (14:45)
--- NOTE | 2023-01-09 14:49 | NUR ---
PATIENT PRESENTS TO ED WITH ABD PAIN . PT STATES THE PAIN HAS BEEN GOING ON FOR TWO DAYS. DENIES N/V/D; SKIN IS PINK/WARM/DRY; AAOX4 WITH EVEN AND STEADY GAIT; LUNGS CLEAR BL; HR EVEN AND REGULAR; PT DENIES ANY FEVER, CP, SOB, OR COUGH AT THIS TIME; PATIENT STATES PAIN OF 10/10 AT THIS TIME; VSS; PATIENT POSITIONED FOR COMFORT; HOB ELEVATED; BEDRAILS UP X2; BED DOWN. ER MD MADE AWARE OF PT STATUS.
[2023-01-09] MEDS ORDERED: BEN10 PO (15:49)
[2023-01-09] MEDS ORDERED: DICYCLOMINE 20 MG/2 ML VIAL IM ONE (16:10)
--- NOTE | 2023-01-09 17:03 | NUR ---
PT HAS BEEN MEDICATED PER PROVIDERS ORDERS.
[2023-01-09 17:27] VITALS: BP 110/62
== END 2023-01-09 17:23 | disposition home or self-care (01) ==
LOC: MED 13:19
DX: R10.84 Generalized abdominal pain (principal); E87.6 Hypokalemia; J45.909 Unspecified asthma, uncomplicated; Z79.899 Other long term (current) drug therapy; Z90.49 Acquired absence of other specified parts of digestive tract
CPT/HCPCS: 36415; 74176; 80053; 81025; 83690; 85025; 96361; 96372; 96374; 96375; 99285; J0500; J1885; J2270; J2405; J3480; J7030

== ENCOUNTER 2023-08-16 23:25 | Emergency (ER) | payer OTHER ==
[~2023-08-16] VITALS: Ht 149.9 cm; Wt 60.8 kg
[~2023-08-16 23:25] MED LIST changes: +BEN10 PO
[2023-08-17 00:03] VITALS: BP 111/62; PULSE 69; RESP 18; TEMP 98.2; O2SAT 100
[2023-08-17 00:15] VITALS: BP 111/62; PULSE 69; RESP 18; TEMP 98.2; O2SAT 100
[2023-08-17 01:17] LABS: APPEARANCE,URINE CLEAR (CLEAR); BILIRUBIN,URINE NEGATIVE (NEGATIVE); BLOOD, URINE NEGATIVE (NEGATIVE); COLOR,URINE YELLOW (YELLOW); LEUKOCYTE ESTERASE ,URINE NEGATIVE (NEGATIVE); NITRITE, URINE NEGATIVE (NEGATIVE); PH,URINE 7.5 (5.0-9.0); PROTEIN,URINE NEGATIVE (NEGATIVE); UGLUCOSE NEGATIVE (NEGATIVE); UROBILINOGEN,URINE 0.2 EU/dL (0.2 - 1)
[2023-08-17] MEDS ORDERED: KETOROLAC 30 MG/ML VIAL IM ONE (02:00)
[2023-08-17 03:09] LABS: BASOPHILS % (AUTO) 0.4 % (0.0-2.0); EOSINOPHILS # (AUTO) 0.2 K/uL (0-0.4); EOSINOPHILS % (AUTO) 2.6 % (0.0-4.0); HEMATOCRIT 35.5 % (36-48); HEMOGLOBIN 12.3 g/dL (12.0-16.0); LYMPHOCYTES # (AUTO) 2.8 K/uL (2.5-16.5); LYMPHOCYTES % (AUTO) 31.2 % (20.5-51.1); MEAN CORPUSCULAR HEMOGLOBIN 34 pg (27-31); MEAN CORPUSCULAR HGB CONC 35 g/dL (33-37); MONOCYTES # (AUTO) 0.7 K/uL (0.8-1.0); MONOCYTES % (AUTO) 7.9 % (1.7-9.3); NEUTROPHILS # (AUTO) 5.3 K/uL (1.8-7.7); NEUTROPHILS % (AUTO) 57.9 % (42.2-75.2); PLATELET COUNT (AUTO) 287 K/uL (140-450); RED BLOOD CELL COUNT(AUTO) 3.66 MIL/uL (4.20-5.40); RED CELL DISTRIBUTION WIDTH 13.8 % (11.6-13.7); WHITE BLOOD COUNT (AUTO) 9.1 K/uL (4.8-10.8)
[2023-08-17 03:14] LABS: CALCIUM 8.2 mg/dL (8.5-10.1); CARBON DIOXIDE 28.6 mmol/L (21-32); CREATININE 0.7 mg/dL (0.6-1.3); POTASSIUM 3.6 mmol/L (3.5-5.1)
[2023-08-17 03:21] LABS: ALBUMIN 3.3 g/dL (3.4-5.0); BILIRUBIN,DIRECT 0.1 mg/dL (0.0-0.3); TOTAL BILIRUBIN 0.2 mg/dL (0.0-1.0); TOTAL PROTEIN, SERUM 7.5 g/dL (6.4-8.2)
[2023-08-17] MEDS ORDERED: DICYCLOMINE HCL LIQUID 20 MG, ALUMINUM HYD/MAG/SIMETHICONE 30 ML, LIDOCAINE VISCOUS 2% ... PO ONE ×3 (04:05)
[2023-08-17] MEDS ORDERED: DICYCLOMINE HCL LIQUID 10 MG/5 ML UDC ONE (04:07)
[2023-08-17] MEDS ORDERED: ALUMINUM HYD/MAG/SIMETHICONE 30 ML UDC ONE (04:07)
[2023-08-17] MEDS ORDERED: MIRABULK PO (04:07)
[2023-08-17] MEDS ORDERED: SIME80TA41 PO (04:07)
[2023-08-17] MEDS ORDERED: ACET-10509 PO (04:07)
[2023-08-17] MEDS ORDERED: DOCU-299 PO (04:07)
== END 2023-08-17 04:12 | disposition home or self-care (01) ==
LOC: MED 23:25
DX: K59.00 Constipation, unspecified (principal); J45.909 Unspecified asthma, uncomplicated; Z90.49 Acquired absence of other specified parts of digestive tract; Z79.899 Other long term (current) drug therapy; Z79.2 Long term (current) use of antibiotics; Z79.1 Long term (current) use of non-steroidal anti-inflammatories (NSAID)
CPT/HCPCS: 36415; 74022; 76856; 80048; 80076; 81003; 81025; 83690; 85025; 93976; 96372; 99285; J1885

== ENCOUNTER 2023-10-10 17:16 | Emergency (ER) | payer OTHER ==
[~2023-10-10] VITALS: Ht 149.9 cm; Wt 63.5 kg
[~2023-10-10 17:16] MED LIST changes: +DOCU-299 PO; +MIRABULK PO; +SIME80TA41 PO
[2023-10-10 17:39] VITALS: BP 107/65; PULSE 90; RESP 20; TEMP 98.2; O2SAT 99
[2023-10-10 18:38] LABS: BILIRUBIN,URINE NEGATIVE (NEGATIVE); BLOOD, URINE TRACE-I (NEGATIVE); LEUKOCYTE ESTERASE ,URINE NEGATIVE (NEGATIVE); NITRITE, URINE NEGATIVE (NEGATIVE); PROTEIN,URINE NEGATIVE (NEGATIVE); UGLUCOSE NEGATIVE (NEGATIVE); UROBILINOGEN,URINE 0.2 EU/dL (0.2 - 1)
[2023-10-10 18:40] LABS: APPEARANCE,URINE SLIGHTLY HAZY (CLEAR); COLOR,URINE YELLOW (YELLOW)
[2023-10-10 20:25] LABS: BASOPHILS % (AUTO) 0.1 % (0.0-2.0); EOSINOPHILS # (AUTO) 0.1 K/uL (0-0.4); EOSINOPHILS % (AUTO) 1.6 % (0.0-4.0); HEMATOCRIT 36.6 % (36-48); HEMOGLOBIN 12.6 g/dL (12.0-16.0); LYMPHOCYTES # (AUTO) 0.9 K/uL (2.5-16.5); LYMPHOCYTES % (AUTO) 15.4 % (20.5-51.1); MEAN CORPUSCULAR HEMOGLOBIN 33 pg (27-31); MEAN CORPUSCULAR HGB CONC 34 g/dL (33-37); MONOCYTES # (AUTO) 0.4 K/uL (0.8-1.0); MONOCYTES % (AUTO) 6.1 % (1.7-9.3); NEUTROPHILS # (AUTO) 4.7 K/uL (1.8-7.7); NEUTROPHILS % (AUTO) 76.8 % (42.2-75.2); PLATELET COUNT (AUTO) 238 K/uL (140-450); RED BLOOD CELL COUNT(AUTO) 3.86 MIL/uL (4.20-5.40); RED CELL DISTRIBUTION WIDTH 12.7 % (11.6-13.7); WHITE BLOOD COUNT (AUTO) 6.1 K/uL (4.8-10.8)
[2023-10-10] MEDS ORDERED: ONDANSETRON 4 MG/2 ML VIAL ONE (20:32)
[2023-10-10] MEDS ORDERED: FAMOTIDINE 20 MG/2 ML VIAL ONE (20:33)
[2023-10-10] MEDS ORDERED: KETOROLAC 30 MG/ML VIAL ONE (20:33)
[2023-10-10] MEDS: FAMOTIDINE 20 MG/2 ML VIAL IVP ONE (20:34)
[2023-10-10 20:35] LABS: ANION GAP 10.1 (8-16); CARBON DIOXIDE 29.4 mmol/L (21-32); CREATININE 0.6 mg/dL (0.6-1.3); POTASSIUM 3.5 mmol/L (3.5-5.1)
[2023-10-10] MEDS: ONDANSETRON 4 MG/2 ML VIAL IVP ONE (20:35)
[2023-10-10] MEDS: KETOROLAC 30 MG/ML VIAL IVP ONE (20:35)
[2023-10-10] MEDS: NACL 0.9% 1,000 ML IV ONE (20:37)
[2023-10-10 20:46] LABS: ALBUMIN 3.5 g/dL (3.4-5.0); BILIRUBIN,DIRECT 0.1 mg/dL (0.0-0.3); TOTAL BILIRUBIN 0.3 mg/dL (0.0-1.0); TOTAL PROTEIN, SERUM 6.5 g/dL (6.4-8.2)
[2023-10-10 21:05] VITALS: BP 97/52; PULSE 85; RESP 20; O2SAT 98
[2023-10-10] MEDS ORDERED: ONDA-188 SL (22:51)
[2023-10-10] MEDS ORDERED: LOPE2TAB42 PO (22:51)
[2023-10-10] MEDS ORDERED: FAMO-90 PO (22:51)
== END 2023-10-10 23:30 | disposition home or self-care (01) ==
LOC: MED 17:16
DX: R10.33 Periumbilical pain (principal); R10.84 Generalized abdominal pain; R11.10 Vomiting, unspecified; R19.7 Diarrhea, unspecified; Z79.899 Other long term (current) drug therapy; Z90.49 Acquired absence of other specified parts of digestive tract; Z90.89 Acquired absence of other organs
CPT/HCPCS: 36415; 80048; 80076; 81003; 81025; 83690; 85025; 96361; 96374; 96375; 99284; J1885; J2405; J3490; J7030

== ENCOUNTER 2023-11-29 21:42 | Emergency (ER) | payer OTHER ==
[~2023-11-29] VITALS: Ht 149.9 cm; Wt 66.0 kg
[~2023-11-29 21:42] MED LIST changes: +FAMO-90 PO; +LOPE2TAB42 PO; +NAPR-337 PO; -NAPR-54 PO; +ONDA-188 SL
[2023-11-29 21:45] VITALS: BP 136/94; PULSE 69; RESP 18; TEMP 98; O2SAT 100
[2023-11-30 02:37] VITALS: O2SAT 98
[2023-11-30] MEDS ORDERED: CEPH-588 PO (03:10)
== END 2023-11-30 03:26 | disposition home or self-care (01) ==
LOC: MED 21:42
DX: L02.211 Cutaneous abscess of abdominal wall (principal); Z79.899 Other long term (current) drug therapy
CPT/HCPCS: 76641; 99284

== ENCOUNTER 2024-01-02 23:48 | Emergency (ER) | payer OTHER ==
[~2024-01-02] VITALS: Ht 149.9 cm; Wt 69.4 kg
[2024-01-03 00:09] VITALS: BP 116/77; PULSE 75; RESP 16; TEMP 97.1; O2SAT 98
[2024-01-03 00:13] VITALS: BP 116/77; PULSE 75; RESP 16; TEMP 97.1; O2SAT 98
[2024-01-03] MEDS ORDERED: IBUP-2213 PO (00:30)
== END 2024-01-03 00:55 | disposition home or self-care (01) ==
LOC: MED 23:48
DX: N64.4 Mastodynia (principal); Z79.899 Other long term (current) drug therapy
CPT/HCPCS: 99281; 99282

== ENCOUNTER 2024-01-18 03:28 | Emergency (ER) | payer OTHER ==
[~2024-01-18] VITALS: Ht 149.9 cm; Wt 65.8 kg
[2024-01-18 03:30] VITALS: BP 134/70; PULSE 76; RESP 18; TEMP 98.6; O2SAT 98
[2024-01-18] MEDS ORDERED: BENZ-300 PO (07:07)
[2024-01-18 07:16] VITALS: BP 133/69; PULSE 63; RESP 16; TEMP 97.6; O2SAT 99
[2024-01-18 09:53] LABS: FLU A ANTIGEN negative (NEGATIVE); FLU B ANTIGEN negative (NEGATIVE)
== END 2024-01-18 07:16 | disposition home or self-care (01) ==
LOC: MED 03:28
DX: B34.9 Viral infection, unspecified (principal); Z20.822 Contact with and (suspected) exposure to COVID-19; Z79.1 Long term (current) use of non-steroidal anti-inflammatories (NSAID); Z79.2 Long term (current) use of antibiotics; Z79.899 Other long term (current) drug therapy
CPT/HCPCS: 99283

== ENCOUNTER 2024-03-23 15:58 | Inpatient (IN) | payer MEDICAID, OTHER ==
[~2024-03-23] VITALS: Ht 157.5 cm; Wt 63.5 kg
[~2024-03-23 15:58] MED LIST changes: -ACET-10509 PO; +ACET500T99 PO; +BENZ-300 PO
--- NOTE | 2024-03-23 16:15 | NUR ---
TO ER BED 6
[2024-03-23 16:19] VITALS: BP 108/77; PULSE 67; RESP 18; TEMP 98.4; O2SAT 98
[2024-03-23] MEDS: NACL 0.9% 1,000 ML IV ONE (16:25)
[2024-03-23] MEDS: METHYLERGONOVINE 0.2 MG/ML AMP IM ONE ×2 (16:39→17:22)
[2024-03-23 16:45] LABS: BASOPHILS % (AUTO) 0.3 % (0.0-2.0); EOSINOPHILS # (AUTO) 0.1 K/uL (0-0.4); EOSINOPHILS % (AUTO) 0.5 % (0.0-4.0); HEMATOCRIT 34.6 % (36-48); HEMOGLOBIN 11.5 g/dL (12.0-16.0); LYMPHOCYTES # (AUTO) 2.6 K/uL (2.5-16.5); LYMPHOCYTES % (AUTO) 16.8 % (20.5-51.1); MEAN CORPUSCULAR HEMOGLOBIN 32 pg (27-31); MEAN CORPUSCULAR HGB CONC 33 g/dL (33-37); MEAN CORPUSCULAR VOLUME 95.9 fL (80-94); MONOCYTES # (AUTO) 0.8 K/uL (0.8-1.0); MONOCYTES % (AUTO) 5.2 % (1.7-9.3); NEUTROPHILS # (AUTO) 12.2 K/uL (1.8-7.7); NEUTROPHILS % (AUTO) 77.2 % (42.2-75.2); PLATELET COUNT (AUTO) 313 K/uL (140-450); RED BLOOD CELL COUNT(AUTO) 3.61 MIL/uL (4.20-5.40); WHITE BLOOD COUNT (AUTO) 15.8 K/uL (4.8-10.8)
--- NOTE | 2024-03-23 17:09 | NUR ---
Patient is still actively bleeding a large amount. Dr. Lopes notified.
--- NOTE | 2024-03-23 17:09 | NUR ---
Ultrasound at bedside.
--- NOTE | 2024-03-23 17:11 | NUR ---
34 y/o female bib partner for vaginal bleeding since 1230 today. When patient was transfering to bed, large amount of clots noted and bleeding from vagina. Dr. Lopes made aware and at bedside. Patient is pale and weak. Patient is noted to be passing large clots. Patient reports LMP around December 2023, unsure of exact date. Patient is about 10 weeks . Patient reports pain. [id number] Medical History: Denies NKDA
[2024-03-23] MEDS: LACTATED RINGERS 1,000 ML IV ONE (17:25)
--- NOTE | 2024-03-23 17:30 | NUR ---
PATIENT PRESENTS TO ED WITH VAGINAL BLEEDING . PT STATES THAT THEY STARTED BLEEDING TODAY. YESTERDAY THEY TOOK MEDICATION TO TERMINATE AND TODAY TO EXPEL THE PREGENACY AND WAS HAVE BLOOD CLOT WHICH LED TO HER FAINTING. DENIES N/V/D; SKIN IS PALE/WARM/DRY; AAOX4 WITH EVEN AND STEADY GAIT; LUNGS CLEAR BL; HR EVEN AND REGULAR; PT DENIES ANY FEVER, CP, SOB, OR COUGH AT THIS TIME; PATIENT STATES PAIN OF 10/10 AT THIS TIME; PATIENT POSITIONED FOR COMFORT; HOB ELEVATED; BEDRAILS UP X2; BED DOWN. ER MD MADE AWARE OF PT STATUS. CALL LIGHT WITHIN REACH NKA
[2024-03-23 17:36] LABS: INR 0.97 (0.8-1.2); PARTIAL THROMBOPLASTIN TIME 24.3 secs (22-35.6); PROTHROMBIN TIME 10.2 secs (10.8-13.4)
--- NOTE | 2024-03-23 17:38 | NUR ---
Report given to ALEXI Barone for transfer of care.
[2024-03-23 17:57] LABS: ANION GAP 15.4 (8-16); CALCIUM 8.7 mg/dL (8.5-10.1); CARBON DIOXIDE 22.7 mmol/L (21-32); CREATININE 0.9 mg/dL (0.6-1.3); POTASSIUM 3.1 mmol/L (3.5-5.1)
[2024-03-23] MEDS ORDERED: ZOLPIDEM 5 MG TAB PO PRN (18:25)
[2024-03-23] MEDS ORDERED: guaiFENesin DM 200/20 MG-10 ML 10 ML UDC PO PRN (18:25)
[2024-03-23] MEDS ORDERED: DOCUSATE SODIUM 100 MG GELCAP PO PRN (18:25)
[2024-03-23] MEDS: ONDANSETRON 4 MG/2 ML VIAL IM/IVP PRN (19:00)
[2024-03-23 19:15] LABS: LACTIC ACID 2.2 mmol/L (0.4-2.0)
[2024-03-23] MEDS: NACL 0.9% 1,000 ML IV SCH (19:45)
--- NOTE | 2024-03-23 19:48 | NUR ---
PT RESTING IN BED ON BEDSIDE RN ENT. DENIES PAIN AT THIS TIME. PT IS ADMITTED TO HOSPITAL PENDING BED ASSIG. RESP EVEN AND UNLABORED. AT BEDSIDE
--- NOTE | 2024-03-23 20:05 | NUR ---
REPORT GIVEN BY ER NURSE LYLA RN FOR CONTINUITY OF CARE, PT TO GO TO ROOM 123B.[email or web address]
--- NOTE | 2024-03-23 20:13 | NUR ---
PT ADMIT VIA RNEY 123B, PT A/OX4, NO C/O PAIN, DISCOMFORT, RESPIRATION EQUAL, NON LABORED, ROOM AIR, IV LEFT AC 18 G NS @60ML/HR, PT VAGINAL BLEEDING NOTED, HUSSEIN PAD GIVEN, CUTTER TENDER INTACT, ORIENT PT TO SURROUNDINGS, WILL CONTINUE FREQUENT ROUNDING, WILL CONTINUE TO MONITOR.[email or web address]
--- NOTE | 2024-03-23 20:31 | NUR ---
ATTEMPTED TO CALL REPORT , BED STILL DIRTY. WILL TRY AGIAN IN 15 MINS
--- NOTE | 2024-03-23 20:42 | NUR ---
MED RECONCILE AND BELONGINGS COMPLETED
--- NOTE | 2024-03-23 21:00 | NUR ---
REPORT GIVEN TO ARIAS TRUONG
--- NOTE | 2024-03-23 21:20 | NUR ---
Patient will be admitted to care of DR HERNANDEZ. Admited to TELE. Will go to room 123B. Belongings list completed. Report to ARIAS TRUONG.
[2024-03-23 23:00] VITALS: PULSE 75
[2024-03-23] MEDS: POTASSIUM CHLORIDE 10 MEQ TABER PO PRN (23:16)
--- NOTE | 2024-03-23 23:16 | NUR ---
FOR K LEVEL 3.1 K DUR GIVEN ORDERED.[email or web address]
--- NOTE | 2024-03-23 23:55 | NUR ---
Patient's Plan of Care was discussed and reviewed with MUSIC PASTOR: SEB BIANCHI
[2024-03-24] VITALS: BP 100/58; PULSE 65; PULSE 72; RESP 18; TEMP 97; O2SAT 91
--- NOTE | 2024-03-24 | NUR ---
RECHECKED B/P [id number]
[2024-03-24] MEDS: ACETAMINOPHEN 325 MG TAB PO PRN (03:05)
[2024-03-24 04:00] VITALS: BP 100/50; PULSE 66; RESP 18; TEMP 97; O2SAT 100
--- NOTE | 2024-03-24 04:00 | NUR ---
RECHECKED B/P 106/58 [email or web address]
[2024-03-24 05:16] LABS: BASOPHILS % (AUTO) 0.2 % (0.0-2.0); EOSINOPHILS # (AUTO) 0.1 K/uL (0-0.4); EOSINOPHILS % (AUTO) 1.2 % (0.0-4.0); HEMOGLOBIN 7.6 g/dL (12.0-16.0); LYMPHOCYTES # (AUTO) 2.3 K/uL (2.5-16.5); MEAN CORPUSCULAR HEMOGLOBIN 32 pg (27-31); MEAN CORPUSCULAR HGB CONC 33 g/dL (33-37); MONOCYTES # (AUTO) 0.9 K/uL (0.8-1.0); MONOCYTES % (AUTO) 7.1 % (1.7-9.3); NEUTROPHILS # (AUTO) 8.9 K/uL (1.8-7.7); NEUTROPHILS % (AUTO) 72.5 % (42.2-75.2); PLATELET COUNT (AUTO) 229 K/uL (140-450); RED BLOOD CELL COUNT(AUTO) 2.37 MIL/uL (4.20-5.40); RED CELL DISTRIBUTION WIDTH 12.9 % (11.6-13.7); WHITE BLOOD COUNT (AUTO) 12.3 K/uL (4.8-10.8)
[2024-03-24 05:34] LABS: ALBUMIN 2.4 g/dL (3.4-5.0); ANION GAP 12.2 (8-16); CALCIUM 7.7 mg/dL (8.5-10.1); CARBON DIOXIDE 22.9 mmol/L (21-32); CREATININE 0.7 mg/dL (0.6-1.3); POTASSIUM 4.1 mmol/L (3.5-5.1); TOTAL BILIRUBIN 0.3 mg/dL (0.0-1.0); TOTAL PROTEIN, SERUM 5.3 g/dL (6.4-8.2)
--- NOTE | 2024-03-24 06:00 | NUR ---
PT ON PHONE NO S/S OF DISTRESS NOTED, CALL LIGHT WITHIN REACH, WILL CONTINUE TO MONITOR.[email or web address]
[2024-03-24] MEDS: NACL 0.9% 500 ML IV ONE ×2 (06:57→15:48)
--- NOTE | 2024-03-24 07:00 | NUR ---
RECEIVED PATIENT FROM NIGHT NURSE PATIENT IS ALERT AND ORIENTED X4 ON ROOM AIR IV SITE INTACT IN LEFT AC 18G NS RUNNING AT 60ML/HR PATIENT IS ABLE TO MAKE NEEDS KNOW AND AMBULATE TO THE RESTROOM NO COMPLAINTS OF ABDOMINAL PAIN OR CRAMPING AT THIS TIME. [email or web address]
--- NOTE | 2024-03-24 07:15 | NUR ---
REPORT GIVEN TO AM NURSE KAREN RN FOR CONTINUITY OF CARE.[email or web address]
[2024-03-24 08:00] VITALS: BP 97/56; PULSE 69; PULSE 70; RESP 16; TEMP 97.9; O2SAT 100
[2024-03-24] MEDS: PANTOPRAZOLE 40 MG TABEC PO SCH (08:29)
--- NOTE | 2024-03-24 09:19 | NUR ---
PATIENT HAS BEEN SCREENED AND CATEGORIZED LOW NUTRITION RISK. PATIENT WILL BE SEEN WITHIN 7 DAYS OF ADMISSION. 03/30/[address]
[2024-03-24 10:56] LABS: LACTIC ACID 2.9 mmol/L (0.4-2.0)
--- NOTE | 2024-03-24 11:02 | NUR ---
COLLECTED URINE SAMPLE FROM PATIENT , URINE COLOR IS RED/PINKI TINGED ONE SMALL CLOTH COCO SIZE. [email or web address]
--- NOTE | 2024-03-24 11:05 | NUR ---
CRITICAL LAB REPORTED TO LACTIC ACID 2.9 . [email or web address]
[2024-03-24] MEDS ORDERED: NACL 0.9% 1,000 ML IV SCH (11:10)
[2024-03-24] MEDS: NACL 0.9% 1,000 ML IV SCH (11:15)
[2024-03-24 12:00] VITALS: BP 102/50; PULSE 72; PULSE 74; RESP 18; TEMP 98.2; O2SAT 100
--- NOTE | 2024-03-24 12:30 | NUR ---
BOLUS 1 LITER NS. [email or web address]
[2024-03-24] MEDS: PIPERACILLIN/TAZOBACTAM 3.375 GM in DEXTROSE 5% 50 ML IV SCH (12:46)
--- NOTE | 2024-03-24 13:00 | NUR ---
ASSISTED PATIENT TO THE RESTROOM PATIENT IS ABLE TO AMBULATE. [email or web address]
[2024-03-24 15:34] LABS: LACTIC ACID 2.3 mmol/L (0.4-2.0)
--- NOTE | 2024-03-24 15:35 | NUR ---
CRITICAL LAB LACTIC ACID 2.3 REPORTED TO MD. CARDONA
--- NOTE | 2024-03-24 15:46 | NUR ---
BOLUS 500 ML NORMAL SALINE. [email or web address]
[2024-03-24 15:47] LABS: APPEARANCE,URINE CLEAR (CLEAR); BILIRUBIN,URINE NEGATIVE (NEGATIVE); BLOOD, URINE 3+ (NEGATIVE); COLOR,URINE YELLOW (YELLOW); LEUKOCYTE ESTERASE ,URINE TRACE (NEGATIVE); NITRITE, URINE NEGATIVE (NEGATIVE); PROTEIN,URINE NEGATIVE (NEGATIVE); UGLUCOSE NEGATIVE (NEGATIVE); UROBILINOGEN,URINE 0.2 EU/dL (0.2 - 1)
[2024-03-24 15:56] LABS: RBC,URINE 11-20 (MOD) /HPF (0-5); WBC,URINE 0-5 /HPF (0-5)
[2024-03-24 15:57] LABS: BACTERIA,URINE FEW /HPF (None Seen); FINE GRANULAR CASTS,URINE 0-10 /LPF (None Seen); MUCUS,URINE 1+ /LPF (None Seen); SQUAMOUS EPITHELIAL CELL,UR 4-10 (MOD) /LPF (0-3 (FEW)); TRICHOMONAS,URINE None Seen /HPF (None Seen); YEAST,URINE None Seen /HPF (None Seen)
[2024-03-24 16:00] VITALS: BP 105/53; PULSE 76; RESP 18; TEMP 98.2; O2SAT 100
--- NOTE | 2024-03-24 19:19 | NUR ---
ENDORSED REPORT TO NIGHT NURSE PATIENT STABLE. [email or web address]
[2024-03-24 20:00] VITALS: BP 96/46; PULSE 69; RESP 16; RESP 18; TEMP 97.2; O2SAT 100; O2SAT 97
[2024-03-25 04:00] VITALS: BP 98/54; PULSE 74; RESP 18; TEMP 97.8; O2SAT 98
[2024-03-25 05:21] LABS: BASOPHILS % (AUTO) 0.1 % (0.0-2.0); EOSINOPHILS # (AUTO) 0.3 K/uL (0-0.4); LYMPHOCYTES % (AUTO) 14.9 % (20.5-51.1); MEAN CORPUSCULAR HEMOGLOBIN 32 pg (27-31); MEAN CORPUSCULAR HGB CONC 33 g/dL (33-37); MEAN CORPUSCULAR VOLUME 97.8 fL (80-94); MONOCYTES # (AUTO) 0.8 K/uL (0.8-1.0); NEUTROPHILS # (AUTO) 10.1 K/uL (1.8-7.7); PLATELET COUNT (AUTO) 188 K/uL (140-450); RED BLOOD CELL COUNT(AUTO) 1.87 MIL/uL (4.20-5.40); RED CELL DISTRIBUTION WIDTH 12.6 % (11.6-13.7); WHITE BLOOD COUNT (AUTO) 13.1 K/uL (4.8-10.8)
[2024-03-25 05:24] LABS: HEMOGLOBIN 6.1 g/dL (12.0-16.0)
[2024-03-25 05:25] LABS: ALBUMIN 2.1 g/dL (3.4-5.0); ANION GAP 9.9 (8-16); CALCIUM 7.4 mg/dL (8.5-10.1); CARBON DIOXIDE 23.8 mmol/L (21-32); CREATININE 0.6 mg/dL (0.6-1.3); HEMATOCRIT 18.3 % (36-48); POTASSIUM 3.7 mmol/L (3.5-5.1); TOTAL BILIRUBIN 0.1 mg/dL (0.0-1.0); TOTAL PROTEIN, SERUM 4.6 g/dL (6.4-8.2)
--- NOTE | 2024-03-25 06:33 | NUR ---
PT VERBALIZED THAT SHE VOIDED WITH REDDISH COLOR OF URINE, SMALL CLOTHS NOTICE FALL TOGETHER WITH URINE.
--- NOTE | 2024-03-25 06:45 | NUR ---
DR. HERNANDEZ CALLED ASKING FOR PT CONDITION. PT LAB RESULTS: HGB 6.1; HCT 18.3. DR. HERNANDEZ ORDER 1 PRBC BLOOD TRANSFUSION. MD ALSO ORDER TRIGOMONAS, CLAMIDIA AND GONORHEA LABS. ORDER CARRY OUT.
--- NOTE | 2024-03-25 07:00 | NUR ---
RECEIVED PATIENT FROM NIGHT NURSE PATIENT IS ALERT AND ORIENTED X4 ON ROOM AIR SINUS RHYTHM IV SITE INTACT IN RIGHT AC 18G AND LEFT AC 18G NS RUNNING 60 CC/HR IN LEFT AC PATIENT IS ABLE TO AMBULATE SKIN INTACT AND SAFETY PRECAUTIONS IN PLACE. [email or web address]
--- NOTE | 2024-03-25 07:30 | NUR ---
PT IS ON STABLE CONDITION, ABLE TO VERBALIZED NEEDS. ALL SAFETY MEASURES ARE IN PLACE. WAITING FOR CROSS MATCH LAB RESULT AND FOR 1 PACK RBC FOR BLOOD TRANSFUSION. ENDORSED TO DAY SHIFT NURSE FOR CONTINUITY OF CARE.
[2024-03-25 08:00] VITALS: BP 104/60; PULSE 70; RESP 18; TEMP 98.5; O2SAT 100
--- NOTE | 2024-03-25 09:43 | NUR ---
STARTED PATIENT ON BLOOD TRANSFUSION, TOLERATING WELL . [email or web address]
--- NOTE | 2024-03-25 10:56 | NUR ---
VITAL SIGNS STABLE DURING BLOOD TRANSFUSION. [email or web address]
--- NOTE | 2024-03-25 12:54 | NUR ---
SECOND BLOOD TRANSFUSION STARTED VITAL SIGNS STABLE . [email or web address]
[2024-03-25 16:00] VITALS: BP 117/81; PULSE 80; RESP 18; TEMP 98; O2SAT 99
[2024-03-25 17:15] LABS: HEMATOCRIT 25.8 % (36-48); HEMOGLOBIN 8.7 g/dL (12.0-16.0)
[2024-03-25 17:27] LABS: INR 0.99 (0.8-1.2); PROTHROMBIN TIME 10.4 secs (10.8-13.4)
--- NOTE | 2024-03-25 17:44 | NUR ---
REPORTED H&H TO DOCTOR, DOCTOR STATED NOT TO TRANSFUSE THIRD BAG PATIENT STABLE AT THIS TIME. [email or web address]
--- NOTE | 2024-03-25 19:19 | NUR ---
RECEIVED PT ON BED, AWAKE, ALERT AND RESPONSIVE VERBALLY, IS AT BEDSIDE. PT VERBALIZED OF FEELING BETTER, NO HEADACHE OR DIZZINESS. IV SIDE IS ON LEFT AC 18G, NORMAL SALINE FLUID IS INFUSING WELL AT 60 ML/HR. PT IS ON STABLE CONDITION.
--- NOTE | 2024-03-25 19:20 | NUR ---
ENDORSED REPORT TO NIGHT NURSE PATIENT IS STABLE. [email or web address]
[2024-03-25 20:00] VITALS: BP 94/53; PULSE 77; RESP 18; TEMP 97.7; O2SAT 100; O2SAT 98
[2024-03-26 04:00] VITALS: BP 108/63; PULSE 66; RESP 18; TEMP 97.7; O2SAT 100
[2024-03-26 05:28] LABS: BASOPHILS % (AUTO) 0.3 % (0.0-2.0); EOSINOPHILS # (AUTO) 0.3 K/uL (0-0.4); EOSINOPHILS % (AUTO) 2.4 % (0.0-4.0); HEMATOCRIT 24.5 % (36-48); HEMOGLOBIN 8.4 g/dL (12.0-16.0); LYMPHOCYTES # (AUTO) 2.7 K/uL (2.5-16.5); LYMPHOCYTES % (AUTO) 25.2 % (20.5-51.1); MEAN CORPUSCULAR HEMOGLOBIN 31 pg (27-31); MEAN CORPUSCULAR HGB CONC 34 g/dL (33-37); MEAN CORPUSCULAR VOLUME 91.3 fL (80-94); MONOCYTES # (AUTO) 0.7 K/uL (0.8-1.0); MONOCYTES % (AUTO) 6.4 % (1.7-9.3); NEUTROPHILS % (AUTO) 65.7 % (42.2-75.2); PLATELET COUNT (AUTO) 183 K/uL (140-450); RED BLOOD CELL COUNT(AUTO) 2.68 MIL/uL (4.20-5.40); RED CELL DISTRIBUTION WIDTH 16.5 % (11.6-13.7); WHITE BLOOD COUNT (AUTO) 10.7 K/uL (4.8-10.8)
[2024-03-26 05:57] LABS: ALBUMIN 2.2 g/dL (3.4-5.0); ANION GAP 11.1 (8-16); CALCIUM 7.6 mg/dL (8.5-10.1); CARBON DIOXIDE 24.2 mmol/L (21-32); CREATININE 0.6 mg/dL (0.6-1.3); POTASSIUM 3.3 mmol/L (3.5-5.1); TOTAL BILIRUBIN 0.2 mg/dL (0.0-1.0)
--- NOTE | 2024-03-26 07:00 | NUR ---
RECEIVED PATIENT FROM NIGHT NURSE PATIENT IS ALERT AND ORIENTED X4 ON ROOM AIR IV INTACT IN LEFT AC SKIN INTACT PATIENT IS ABLE TO AMBULATE SAFETY PRECAUTIONS IN PLACE. [email or web address]
--- NOTE | 2024-03-26 07:20 | NUR ---
PT IS ON BED SLEEPING AND IS ON STABLE CONDITION. ALL SAFETY MEASURES ARE IN PLACE. ENDORSED TO DAY SHIFT NURSE FOR CONTINUITY OF CARE.
[2024-03-26 08:00] VITALS: BP 106/64; PULSE 66; RESP 18; TEMP 98.1; O2SAT 100; O2SAT 97
--- NOTE | 2024-03-26 10:00 | NUR ---
DISCONNECTED PATIENT FROM IV SO SHE CAN USE THE RESTROOM. [email or web address]
--- NOTE | 2024-03-26 13:00 | NUR ---
PATIENT IS ASLEEP RESPIRATIONS EVEN AND UNLABORED. [email or web address]
[2024-03-26 16:00] VITALS: BP 106/69; PULSE 77; RESP 18; TEMP 98.1; O2SAT 99
--- NOTE | 2024-03-26 17:27 | NUR ---
AT BEDSIDE WITH PATIENT. [email or web address]
--- NOTE | 2024-03-26 19:16 | NUR ---
ENDORSED REPORT TO NIGHT NURSE PATIENT IS STABLE. [email or web address]
--- NOTE | 2024-03-26 19:20 | NUR ---
RECEIVED REPORT FROM DAY NURSE FOR CONTINUITY OF CARE, PATIENT IS AWAKE, ALERT AND ORIENTED X4, NO C/O PAIN UPON ASSESSMENT, BREATHING EVEN AND UNLABORED ON ROOM AIR, PATIENT DENIES HAVING ACTIVE VAGINAL BLEEDING AT THIS TIME, IVF INFUSING ORDERED, CALL LIGHT WITHIN REACH.
[2024-03-26 20:00] VITALS: BP 117/64; PULSE 74; RESP 18; TEMP 98.2; O2SAT 98
--- NOTE | 2024-03-26 20:16 | NUR ---
SCHEDULED IV ANTIBIOTIC GIVEN ORDERED.
--- NOTE | 2024-03-27 00:40 | NUR ---
PATIENT IS ASLEEP, NO S/S OF DISTRESS NOTED, VISIBLE CHEST RISE AND FALL, CALL LIGHT WITHIN REACH.
[2024-03-27 04:00] VITALS: BP 108/61; PULSE 71; RESP 16; TEMP 97.3; O2SAT 98
--- NOTE | 2024-03-27 04:37 | NUR ---
SCHEDULED IV ANTIBIOTIC GIVEN ORDERED.
[2024-03-27 05:19] LABS: BASOPHILS % (AUTO) 0.4 % (0.0-2.0); EOSINOPHILS # (AUTO) 0.3 K/uL (0-0.4); EOSINOPHILS % (AUTO) 3.1 % (0.0-4.0); HEMATOCRIT 25.9 % (36-48); HEMOGLOBIN 8.8 g/dL (12.0-16.0); LYMPHOCYTES # (AUTO) 2.9 K/uL (2.5-16.5); LYMPHOCYTES % (AUTO) 28.6 % (20.5-51.1); MEAN CORPUSCULAR HEMOGLOBIN 32 pg (27-31); MEAN CORPUSCULAR HGB CONC 34 g/dL (33-37); MEAN CORPUSCULAR VOLUME 92.5 fL (80-94); MONOCYTES # (AUTO) 0.7 K/uL (0.8-1.0); MONOCYTES % (AUTO) 7.3 % (1.7-9.3); NEUTROPHILS # (AUTO) 6.1 K/uL (1.8-7.7); NEUTROPHILS % (AUTO) 60.6 % (42.2-75.2); PLATELET COUNT (AUTO) 221 K/uL (140-450); RED CELL DISTRIBUTION WIDTH 16.1 % (11.6-13.7); WHITE BLOOD COUNT (AUTO) 10.1 K/uL (4.8-10.8)
[2024-03-27 05:34] LABS: ALBUMIN 2.3 g/dL (3.4-5.0); ANION GAP 9.9 (8-16); CALCIUM 8.1 mg/dL (8.5-10.1); CARBON DIOXIDE 27.4 mmol/L (21-32); CREATININE 0.6 mg/dL (0.6-1.3); POTASSIUM 3.3 mmol/L (3.5-5.1); TOTAL BILIRUBIN 0.2 mg/dL (0.0-1.0); TOTAL PROTEIN, SERUM 5.5 g/dL (6.4-8.2)
--- NOTE | 2024-03-27 07:08 | NUR ---
ENDORSED TO DAY NURSE FOR CONTINUITY OF CARE. PATIENT IS STABLE.
[2024-03-27 08:00] VITALS: BP 104/62; PULSE 65; RESP 17; RESP 18; TEMP 97.2; O2SAT 98
[2024-03-27 10:50] VITALS: PULSE 86; RESP 20; O2SAT 99
[2024-03-27] MEDS ORDERED: DOCU-299 PO (11:23)
[2024-03-27] MEDS ORDERED: LEVO-481 PO (11:23)
[2024-03-27] MEDS ORDERED: FERR325E14 PO (11:23)
--- NOTE | 2024-03-27 11:58 | NUR ---
RECEIVED ORDER FOR PATIENT TO GET A REFERRAL TO [facility]. DUE TO PATIENTS INSURANCE UNABLE TO MAKE APPOINTMENT PATIENT MUST CALL HERSELF BUT PROVIDED PATIENT AT BEDSIDE A LIST OF THE [facility] SO SHE HAS OPTIONS WELL THE PLANNED [facility] [employer]
[2024-03-27 12:00] VITALS: BP 104/62; PULSE 65; RESP 17; TEMP 97.2; O2SAT 98
--- NOTE | 2024-03-27 12:00 | NUR ---
PT RESTING ON BED,NO COMPLAINT FOR PAIN, SAFETY IS ON PLACE,PT IS UNDER OBSERVATION.
[2024-03-27 12:47] VITALS: BP 104/62; PULSE 65; RESP 17; TEMP 97.2
--- NOTE | 2024-03-27 13:13 | NUR ---
PT HAVING DISCHARGE ORDER TO GO HOME,DISCHARGE PACKET DONE AND GIVEN TO PT,PT SIGN ALL THE DISCHARGE PAPER,ALL HER QUESTION ANSWERED,WAITING FOR HER TO PICK HER UP.
--- NOTE | 2024-03-27 14:13 | NUR ---
PTS IS HERE,IV AND ARM BAND REMOVED,PT PICKED UP BY [facility] HOME.
== END 2024-03-27 14:05 | disposition home or self-care (01) | DRG 779 ==
LOC: MED 15:58 → MTU 18:29 → MED 21:33
PROVIDERS: ADMIT Student in an Organized Health Care Education/Training Program; ATTEND Student in an Organized Health Care Education/Training Program
PROC: 30233N1 Transfusion of Nonautologous Red Blood Cells into Peripheral Vein, Percutaneous Approach (ICD-10-PCS; principal; 2024-03-25)
DX: O04.6 Delayed or excessive hemorrhage following (induced) termination of pregnancy (principal); E43 Unspecified severe protein-calorie malnutrition; D62 Acute posthemorrhagic anemia; N39.0 Urinary tract infection, site not specified; Z79.899 Other long term (current) drug therapy; Z90.49 Acquired absence of other specified parts of digestive tract
CPT/HCPCS: 36415; 76815; 76856; 80048; 80053; 81001; 83605; 84702; 85018; 85025; 85384; 85610; 85730; 86886; 86900; 86901; 86920; 87040; 87081; 87086; 87186; 87210; 87491; 96360; 96361; 96372; 99291; 99292; J2210; J2405; J2543; J7060; P9016; Q0092

== ENCOUNTER 2024-03-29 16:11 | Emergency (ER) | payer MEDICAID ==
[~2024-03-29] VITALS: Ht 149.9 cm; Wt 69.4 kg
[~2024-03-29 16:11] MED LIST changes: -ACET500T99 PO; -ATA25 PO; -AZIT250T4 PO; -BEN10 PO; -BENZ-300 PO; -CEPH-588 PO; -CEPH500C16 PO; -DOXY1TCP PO; -FAMO-90 PO; +FERR325E14 PO; -IBUP-2213 PO; +LEVO-481 PO; -LOPE2TAB42 PO; -MIRABULK PO; -NAPR-337 PO; -NITR100C7 PO; -ONDA-188 SL; -PENI500T20 PO; -SIME80TA41 PO
[2024-03-29 16:59] VITALS: BP 112/59; PULSE 88; RESP 18; TEMP 98.1; O2SAT 99
[2024-03-29 17:37] LABS: BASOPHILS % (AUTO) 0.2 % (0.0-2.0); EOSINOPHILS # (AUTO) 0.1 K/uL (0-0.4); EOSINOPHILS % (AUTO) 1.4 % (0.0-4.0); HEMATOCRIT 28.1 % (36-48); HEMOGLOBIN 9.4 g/dL (12.0-16.0); LYMPHOCYTES # (AUTO) 1.2 K/uL (2.5-16.5); LYMPHOCYTES % (AUTO) 12.5 % (20.5-51.1); MEAN CORPUSCULAR HEMOGLOBIN 31 pg (27-31); MEAN CORPUSCULAR HGB CONC 34 g/dL (33-37); MEAN CORPUSCULAR VOLUME 92.5 fL (80-94); MONOCYTES # (AUTO) 0.6 K/uL (0.8-1.0); MONOCYTES % (AUTO) 6.4 % (1.7-9.3); NEUTROPHILS # (AUTO) 7.7 K/uL (1.8-7.7); NEUTROPHILS % (AUTO) 79.5 % (42.2-75.2); PLATELET COUNT (AUTO) 306 K/uL (140-450); RED BLOOD CELL COUNT(AUTO) 3.04 MIL/uL (4.20-5.40); RED CELL DISTRIBUTION WIDTH 16.1 % (11.6-13.7); WHITE BLOOD COUNT (AUTO) 9.8 K/uL (4.8-10.8)
[2024-03-29 20:36] VITALS: BP 112/59; PULSE 88; RESP 18; TEMP 98.1; O2SAT 99
== END 2024-03-29 20:50 | disposition home or self-care (01) ==
LOC: MED 16:11
DX: O04.89 (Induced) termination of pregnancy with other complications (principal); O99.341 Other mental disorders complicating pregnancy, first trimester; F41.9 Anxiety disorder, unspecified; R03.0 Elevated blood-pressure reading, without diagnosis of hypertension; Z3A.08 8 weeks gestation of pregnancy; Z79.899 Other long term (current) drug therapy
CPT/HCPCS: 36415; 81025; 85025; 99283